=== PATIENT | female | born 1980 | race Caucasian/White ===

== ENCOUNTER 2017-05-16 21:22 | Emergency (ER) | payer SELFPAY ==
[2017-05-16] MEDS ORDERED: HYDROcodone/Acetaminophen 10/325 mg Tablet ONE (21:33)
[2017-05-16] MEDS ORDERED: Sulfameth/Trimethoprim DS 800-160mg TAB ONE (21:34)
== END 2017-05-16 21:48 | disposition home or self-care (01) ==
LOC: BURERS 21:22
DX: H66.41 Suppurative otitis media, unspecified, right ear (principal); H66.93 Otitis media, unspecified, bilateral; H72.91 Unspecified perforation of tympanic membrane, right ear; F17.210 Nicotine dependence, cigarettes, uncomplicated
CPT/HCPCS: 99282

== ENCOUNTER 2018-07-03 15:28 | Emergency (ER) | payer SELFPAY ==
[2018-07-03] MEDS ORDERED: Adacel (T-DAP) 0.5 ML SYRINGE ONE (15:47)
== END 2018-07-03 15:51 | disposition home or self-care (01) ==
LOC: BURERS 15:28
DX: S91.312A Laceration without foreign body, left foot, initial encounter (principal); F25.9 Schizoaffective disorder, unspecified; W26.0XXA Contact with knife, initial encounter
CPT/HCPCS: 90471; 90715

== ENCOUNTER 2020-08-17 05:24 | Emergency (ER) | payer MEDICAID, SELFPAY | END 2020-08-17 06:25 | disposition home or self-care (01) | LOC: BURERS 05:24 | DX: S62.317A Displaced fracture of base of fifth metacarpal bone, left hand, initial encounter for closed fracture (principal); W22.8XXA Striking against or struck by other objects, initial encounter | CPT/HCPCS: 26600 ==

== ENCOUNTER 2020-09-07 12:54 | Emergency (ER) | payer MEDICAID, SELFPAY | END 2020-09-07 13:34 | disposition home or self-care (01) | LOC: BURERS 12:54 | DX: S62.307D Unspecified fracture of fifth metacarpal bone, left hand, subsequent encounter for fracture with routine healing (principal); F17.210 Nicotine dependence, cigarettes, uncomplicated; X58.XXXD Exposure to other specified factors, subsequent encounter | CPT/HCPCS: 29125 ==